=== PATIENT | female | born 1960 | race Caucasian/White ===

== ENCOUNTER 2018-09-12 05:30 | Day surgery (SDC) | payer MEDICAID ==
[2018-09-11 11:15] LABS: BASOPHILS % (AUTO) 0.4 % (0-1); EOSINOPHILS # (AUTO) 0.1 X10'3 (0-0.9); EOSINOPHILS % (AUTO) 2.1 % (0-6); LYMPHOCYTES % (AUTO) 36.7 % (21-51); MEAN CORPUSCULAR HEMOGLOBIN 31.5 PG (27.0-31.0); MEAN CORPUSCULAR VOLUME 92.7 FL (78-98); MEAN PLATELET VOLUME 8.3 FL (7.4-10.4); MONOCYTES # (AUTO) 0.4 X10'3 (0-0.9); MONOCYTES % (AUTO) 6.9 % (2-12); NEUTROPHILS # (AUTO) 3.1 X10'3 (1.8-7.7); NEUTROPHILS % (AUTO) 53.9 % (42-75); PRE OP HEMATOCRIT 42.4 % (35.0-45.0); PRE OP HEMOGLOBIN 14.4 g/dL (12.0-16.0); PRE OP PLATELET COUNT 201 X10'3 (140-440); RED BLOOD COUNT 4.57 X10'6 (4.20-5.60); RED CELL DISTRIBUTION WIDTH 11.8 % (11.5-14.5)
[2018-09-11 11:28] LABS: ALBUMIN 4.1 G/DL (3.4-5.0); ALBUMIN/GLOBULIN RATIO 1.3 (1.1-1.5); ALKALINE PHOSPHATASE 63 IU/L (46-116); BLOOD UREA NITROGEN 15 MG/DL (7-18); CALCIUM 9.4 MG/DL (8.5-10.1); CHLORIDE 103 MMOL/L (99-107); CREATININE 0.79 MG/DL (0.40-0.90); PRE OP ALT 65 U/L (30-65); PRE OP ANION GAP 9 (8-16); PRE OP AST 28 U/L (10-37); PRE OP BILIRUB, TOTAL 1.4 MG/DL (0.0-1.0); PRE OP GLUCOSE 95 MG/DL (70-104); PRE OP POTASSIUM 3.9 MMOL/L (3.4-5.1); PRE OP SODIUM 140 MMOL/L (135-145); TOTAL CARBON DIOXIDE 28.3 MMOL/L (24-32); TOTAL PROTEIN 7.3 G/DL (6.4-8.2); eGFR 76 ML/MIN
[2018-09-12] VITALS (8 sets, daily range): BP systolic 110–133; BP diastolic 70–77
[~2018-09-12] VITALS: Ht 162.6 cm; Wt 89.1 kg
[~2018-09-12 05:30] MED LIST: ASCO500C15 PO; CYAN250010 PO; DICL75TA28 PO; IBUP-1984 PO; OMEG1CAP46 PO; OMEP-84 PO; cefazolin/dext.iso 2gm/50ml 50 ML IV ONE; famotidine 20mg tablet PO ONE; ringers solution, lacted 1,000 ML IV SCH; scopolamine 1.5mg patch.TD72 TD ONE
[2018-09-12] MEDS ORDERED: BUPIVAcaine/PF 2.5mg/ml (0.25%) 10ml vial ONE (06:39)
[2018-09-12] MEDS ORDERED: LIDOcaine 0.5% (5mg/ml) 50ml vial ONE (07:20)
[2018-09-12] MEDS ORDERED: midazolam 2 mg/2 ml injection ONE (07:23)
[2018-09-12] MEDS ORDERED: fentaNYL/PF 50MCG/1 ML 2ML syringe ONE (07:23)
[2018-09-12] MEDS ORDERED: propofol inj 20 ML IV ONE (07:48)
--- NOTE | 2018-09-12 07:50 | NUR ---
Received from OR via [facility], accompanied by Anesthesiologist DR BRYAN and report given by Anesthesiologist. PT W/MARIEG AND JOSSIE WRAP COVERING INCISION, CDI, FINGERS PWD, PT ABLE TO MOVE FINGERS, DENIES PAIN. Addendum: 09/12/18 at 0817 by Maluo Brock RN Amended: Links added.
[2018-09-12] MEDS ORDERED: ringers solution, lacted 1,000 ML IV SCH (07:57)
[2018-09-12] MEDS ORDERED: proCHLORperazine 10 MG/2 ml inj IV PRN (08:00)
[2018-09-12] MEDS ORDERED: meperidine/PF 25mg/ml syringe IV PRN ×3 (08:00)
[2018-09-12] MEDS ORDERED: ondansetron/PF 4mg/2ml inj IV PRN (08:00)
[2018-09-12] MEDS ORDERED: morphine 4 MG/ML inj SYRINge IV PRN ×2 (08:00)
[2018-09-12] MEDS ORDERED: ondansetron 4mg rapidly disintigrating tab PO ONE (08:40)
== END 2018-09-12 08:50 | disposition home or self-care (01) ==
LOC: PAS 05:30
PROVIDERS: ATTEND Orthopaedic Surgery Hand Surgery
DX: G56.01 Carpal tunnel syndrome, right upper limb (principal); M19.90 Unspecified osteoarthritis, unspecified site; K21.9 Gastro-esophageal reflux disease without esophagitis; E66.9 Obesity, unspecified; Z98.51 Tubal ligation status; Z87.2 Personal history of diseases of the skin and subcutaneous tissue; Z88.5 Allergy status to narcotic agent; Z68.33 Body mass index [BMI] 33.0-33.9, adult; Z79.1 Long term (current) use of non-steroidal anti-inflammatories (NSAID); Z88.6 Allergy status to analgesic agent; Z87.891 Personal history of nicotine dependence; Z88.8 Allergy status to other drugs, medicaments and biological substances; Z98.890 Other specified postprocedural states; Z79.899 Other long term (current) drug therapy
CPT/HCPCS: 29848; 36415; 80053; 85025; 93005; A6449; J0690; J2001; J2250; J2704; J3010; J3490; A7000; J7120

== ENCOUNTER 2018-10-24 05:44 | Day surgery (SDC) | payer MEDICAID ==
[~2018-10-24] VITALS: Ht 162.6 cm; Wt 91.8 kg
[~2018-10-24 05:44] MED LIST changes: +BENZ-16 PO; +SULF1TAB49 PO; +SUMA25TA35 PO; -scopolamine 1.5mg patch.TD72 TD ONE
[2018-10-24] MEDS ORDERED: LIDOcaine 1% (10mg/ml) 2ml vial ONE (06:11)
[2018-10-24] MEDS ORDERED: BUPIVAcaine/PF 2.5mg/ml (0.25%) 10ml vial ONE (06:55)
[2018-10-24 07:10] LABS: BASOPHILS % (AUTO) 0.6 % (0-1); EOSINOPHILS # (AUTO) 0.1 X10'3 (0-0.9); EOSINOPHILS % (AUTO) 2.4 % (0-6); LYMPHOCYTES # (AUTO) 1.7 X10'3 (1.1-4.8); LYMPHOCYTES % (AUTO) 33.7 % (21-51); MEAN CORPUSCULAR HEMOGLOBIN 31.7 PG (27.0-31.0); MEAN CORPUSCULAR HGB CONC 33.8 g/dL (33.0-36.5); MEAN CORPUSCULAR VOLUME 93.7 FL (78-98); MEAN PLATELET VOLUME 7.8 FL (7.4-10.4); MONOCYTES # (AUTO) 0.3 X10'3 (0-0.9); MONOCYTES % (AUTO) 5.8 % (2-12); NEUTROPHILS % (AUTO) 57.5 % (42-75); PRE OP HEMATOCRIT 39.2 % (35.0-45.0); PRE OP HEMOGLOBIN 13.3 g/dL (12.0-16.0); PRE OP PLATELET COUNT 237 X10'3 (140-440); RED BLOOD COUNT 4.18 X10'6 (4.20-5.60); RED CELL DISTRIBUTION WIDTH 11.9 % (11.5-14.5)
[2018-10-24 07:14] LABS: ALBUMIN 3.9 G/DL (3.4-5.0); ALBUMIN/GLOBULIN RATIO 1.3 (1.1-1.5); ALKALINE PHOSPHATASE 60 IU/L (46-116); BLOOD UREA NITROGEN 19 MG/DL (7-18); BUN/CREATININE RATIO 17.9 (6.6-38.0); CALCIUM 9.5 MG/DL (8.5-10.1); CHLORIDE 103 MMOL/L (99-107); CREATININE 1.06 MG/DL (0.40-0.90); PRE OP ALT 56 U/L (30-65); PRE OP ANION GAP 15 (8-16); PRE OP AST 25 U/L (10-37); PRE OP GLUCOSE 116 MG/DL (70-104); PRE OP SODIUM 141 MMOL/L (135-145); TOTAL CARBON DIOXIDE 23.4 MMOL/L (24-32); eGFR 54 ML/MIN
[2018-10-24] MEDS ORDERED: aprepitant 40mg capsule PO ONE (07:25)
[2018-10-24 07:27] VITALS: BP 129/78
[2018-10-24 07:29] VITALS: BP 129/78
[2018-10-24] MEDS ORDERED: LIDOcaine 1% 30ml preserv. free vial ONE (07:50)
[2018-10-24] MEDS ORDERED: ringers solution, lacted 1,000 ML IV SCH (07:58)
[2018-10-24] MEDS ORDERED: proCHLORperazine 10 MG/2 ml inj IV PRN (08:00)
[2018-10-24] MEDS ORDERED: ondansetron/PF 4mg/2ml inj IV PRN (08:00)
[2018-10-24] MEDS ORDERED: morphine 4 MG/ML inj SYRINge IV PRN ×2 (08:00)
[2018-10-24] MEDS ORDERED: meperidine/PF 25mg/ml syringe IV PRN ×3 (08:00)
[2018-10-24] MEDS ORDERED: MIDAZolam 5mg/5ml vial ONE (08:05)
[2018-10-24] MEDS ORDERED: ondansetron/PF 4mg/2ml inj ONE (08:41)
[2018-10-24] MEDS ORDERED: dexamethasone sod phosphate 4mg/ml inj. ONE (08:41)
[2018-10-24] MEDS ORDERED: ketorolac trometh. 30mg/ml inj. ONE (08:42)
[2018-10-24 08:56] VITALS: BP 114/83
[2018-10-24 09:06] VITALS: BP_SYST 11; BP_SYST 111; BP_DIAS 78
--- NOTE | 2018-10-24 09:07 | NUR ---
Received from OR via [facility], accompanied by Anesthesiologist DR. MUNIZ and report given by Anesthesiolgist. PT SLEEPY BUT ANSWERS QUESTIONS APPROPRIATELY. DRESSING CDI. VSS ON RA. GIBSON WITH GOOD CSM. PULSES AND WATCH DIAL MAKER WNL.
[2018-10-24 09:16] VITALS: BP 115/69
[2018-10-24 09:26] VITALS: BP 115/64
--- NOTE | 2018-10-24 09:26 | NUR ---
PT DC READY. DC INSTR READ TO PT AND , BOTH VERBALIZED UNDERSTANDING. VSS ON RA. ASSISTED PT TO DRESS. IV DCD. TO POV VIA WC FOR DC HOME
== END 2018-10-24 09:26 | disposition home or self-care (01) ==
LOC: PAS 05:44
PROVIDERS: ATTEND Orthopaedic Surgery Hand Surgery
DX: G56.02 Carpal tunnel syndrome, left upper limb (principal); K21.9 Gastro-esophageal reflux disease without esophagitis; E66.9 Obesity, unspecified; Z88.8 Allergy status to other drugs, medicaments and biological substances; Z98.890 Other specified postprocedural states; Z87.891 Personal history of nicotine dependence; Z79.899 Other long term (current) drug therapy
CPT/HCPCS: 29848; 36415; 80053; 85025; A6449; J0690; J1100; J1885; J2250; J2405; J3490; J8501; A7000; J7120

== ENCOUNTER 2019-04-11 18:57 | Emergency (ER) | payer MEDICAID ==
[~2019-04-11] VITALS: Ht 162.6 cm; Wt 8.6 kg
[~2019-04-11 18:57] MED LIST changes: -cefazolin/dext.iso 2gm/50ml 50 ML IV ONE; -famotidine 20mg tablet PO ONE; -ringers solution, lacted 1,000 ML IV SCH
[2019-04-11 18:58] VITALS: BP 124/76
== END 2019-04-11 20:11 | disposition home or self-care (01) ==
LOC: ER 18:58
DX: S80.01XA Contusion of right knee, initial encounter (principal); S60.222A Contusion of left hand, initial encounter; S60.221A Contusion of right hand, initial encounter; S80.212A Abrasion, left knee, initial encounter; Z98.890 Other specified postprocedural states; Z88.6 Allergy status to analgesic agent; Z79.899 Other long term (current) drug therapy; W18.09XA Striking against other object with subsequent fall, initial encounter; Y93.89 Activity, other specified; Y92.59 Other trade areas as the place of occurrence of the external cause; Y99.8 Other external cause status
CPT/HCPCS: 73564; 99283